=== PATIENT | female | born 1995 | race Caucasian/White ===

== ENCOUNTER 2017-07-08 21:54 | Emergency (ER) | payer SELFPAY ==
[~2017-07-08] VITALS: Ht 167.6 cm; Wt 113.4 kg
--- OUTSIDE RECORDS SUMMARY | 2017-07-08 22:00 | XMS REPORT ---
Author Author ARIANNA NDIAYE Organization [employer] Address Unknown Phone Unavailable Care Team Providers Care Primary Care Md Name Role Phone ARIANNA NDIAYE CP Unavailable Allergies, Adverse Reactions, Alerts Substance Reaction Event Type Morphine Sulfate hives Drug Allergy Problems Problem Type Condition Code Onset Dates Condition Status Problem Fatigue, unspecified type R53.83 Active Problem Obesity, unspecified obesity severity, unspecified obesity type E66.9 Active Problem Nocturnal enuresis N39.44 Active Assessment Nocturnal enuresis N39.44 Active Problem Insomnia, unspecified type G47.00 Active Assessment Obesity, unspecified obesity severity, unspecified obesity type E66.9 Active Medications Medication Code System Code Instructions Start Date End Date Status Dosage Imipramine HCl [facility] [address]-58 10 mg Orally Once a day Mar 19, 2016 1-2 tablet at bedtime Fish Oil [facility] [address]-65 1000 MG Orally twice a day December 19, 2015 1 capsule HydrOXYzine HCl [facility] 02906209917 25 MG Orally Once a day 1 tablet as needed Procedures Procedure Coding System Code Date Office Visit, Est Pt., Level 3 CPT-4 43380 Mar 19, 2016 Vital Signs Date/Time: Mar 19, 2016 Cardiac Monitoring Heart Rate 88 bpm Weight 247.2 lbs Height 66.0 in Wt Percentile 99.25 % BMI 39.89 Index Blood Pressure Diastolic 60 mmHg Blood Pressure Systolic 110 mmHg BMIPercentile 98.73 % Results No Known Results Summary Purpose [employer] Submission
--- OUTSIDE RECORDS SUMMARY | 2017-07-08 22:01 | XMS REPORT ---
Author Author [facility] Address [address] [place] [address] Care Team Providers Care Card Cutter Helper Name Role Phone ARIANNA NDIAYE Unavailable PROBLEMS Type Condition ICD9-CM Code IEZ96-LD Code Onset Dates Condition Status SNOMED Code Problem Nocturnal enuresis N39.44 Active 0925579 Problem Fatigue, unspecified type R53.83 Active 96518767 Problem Obesity, unspecified obesity severity, unspecified obesity type E66.9 Active 453474005 Problem Insomnia, unspecified type G47.00 Active 201707171 ALLERGIES Substance Reaction Event Type Date Status Morphine Sulfate hives Drug Allergy Jul, Active SOCIAL HISTORY No smoking Hx information available PLAN OF CARE Activity Details Follow Up prn Reason: VITAL SIGNS Height 66.0 in 2016-08-02 Weight 248.1 lbs 2016-08-02 Temperature 97.8 degrees Fahrenheit 2016-08-02 Heart Rate 80 bpm 2016-08-02 Respiratory Rate 16 2016-08-02 BMI 40.04 kg/m2 2016-08-02 Blood pressure systolic 114 mmHg 2016-08-02 Blood pressure diastolic 70 mmHg 2016-08-02 MEDICATIONS Medication Instructions Dosage Frequency Start Date End Date Duration Status Imipramine HCl 10 mg Orally Once a day at bedtime 1-2 tablets 0 days Active HydrOXYzine HCl 25 MG TAKE ONE (1) TABLET BY MOUTH ONCE DAILY NEEDED. Active RESULTS No Results PROCEDURES Procedure Date Ordered Related Diagnosis Body Site Office Visit, Est Pt., Level 3 Aug 02, 2016 IMMUNIZATIONS No Known Immunizations
--- OUTSIDE RECORDS SUMMARY | 2017-07-08 22:01 | XMS REPORT ---
Author [facility] Address [address] [place] [address] Care Team Providers Care Rod Greaser Name Role Phone ARIANNA NDIAYE Unavailable PROBLEMS Type Condition ICD9-CM Code FCF83-OQ Code Onset Dates Condition Status SNOMED Code Problem Nocturnal enuresis N39.44 Active 7009593 Problem Fatigue, unspecified type R53.83 Active 58004417 Problem Obesity, unspecified obesity severity, unspecified obesity type E66.9 Active 707893498 Problem Insomnia, unspecified type G47.00 Active 844545070 ALLERGIES Substance Reaction Event Type Date Status Morphine Sulfate hives Drug Allergy Sep, Active SOCIAL HISTORY Never Assessed PLAN OF CARE Activity Details Follow Up prn Reason: VITAL SIGNS Height 66.0 in 2016-09-10 Weight 244.1 lbs 2016-09-10 Temperature 98.3 degrees Fahrenheit 2016-09-10 Heart Rate 80 bpm 2016-09-10 Respiratory Rate 16 2016-09-10 BMI 39.39 kg/m2 2016-09-10 Blood pressure systolic 122 mmHg 2016-09-10 Blood pressure diastolic 68 mmHg 2016-09-10 MEDICATIONS Medication Instructions Dosage Frequency Start Date End Date Duration Status Cortisporin 3.5-37701-8 Otic Three times a day 4 drops into affected ear 8h Sep, 05 days Active RESULTS No Results PROCEDURES No Known procedures IMMUNIZATIONS No Known Immunizations MEDICAL (GENERAL) HISTORY Type Description Date Medical History chronic kidney infections Medical History borderline diabetic Medical History obesity Surgical History cholecystectomy 2013 Surgical History appendectomy 09/2012 Surgical History bilateral fallopian tubes, left ovary removed s/p multiple abscesses 09/2012 Surgical History myringotomy with ventilating tube Hospitalization History surgery
--- OUTSIDE RECORDS SUMMARY | 2017-07-08 22:01 | XMS REPORT ---
Author Author ARIANNA NDIAYE [facility] Address [address] [place] [address] Care Team Providers Care Band Splicer Name Role Phone ARIANNA NDIAYE Unavailable PROBLEMS Type Condition ICD9-CM Code [id number]-LW Code Onset Dates Condition Status SNOMED Code Problem Nocturnal enuresis N39.44 Active 0975049 Problem Fatigue, unspecified type R53.83 Active 84208509 Problem Obesity, unspecified obesity severity, unspecified obesity type E66.9 Active 512070620 Problem Insomnia, unspecified type G47.00 Active 603959828 ALLERGIES Unknown Allergies SOCIAL HISTORY No smoking Hx information available PLAN OF CARE VITAL SIGNS MEDICATIONS Medication Instructions Dosage Frequency Start Date End Date Duration Status Imipramine HCl 10 mg Orally Once a day 1-2 tablet at bedtime 24h Mar, Active RESULTS No Results PROCEDURES No Known procedures IMMUNIZATIONS No Known Immunizations
--- OUTSIDE RECORDS SUMMARY | 2017-07-08 22:01 | XMS REPORT ---
Author Author ARIANNA NDIAYE [facility] Address [address] [place] [address] Care Team Providers Care Fuel Retrofitting Technician Name Role Phone ARIANNA NDIAYE Unavailable PROBLEMS Type Condition ICD9-CM Code EDW49-PM Code Onset Dates Condition Status SNOMED Code Problem Nocturnal enuresis N39.44 Active 9518475 Problem Fatigue, unspecified type R53.83 Active 77367717 Problem Obesity, unspecified obesity severity, unspecified obesity type E66.9 Active 131501970 Problem Insomnia, unspecified type G47.00 Active 569177428 ALLERGIES No Known Allergies SOCIAL HISTORY No smoking Hx information available PLAN OF CARE VITAL SIGNS MEDICATIONS Medication Instructions Dosage Frequency Start Date End Date Duration Status Imipramine HCl 10 mg Orally Once a day at bedtime 1-2 tablets 0 days Active RESULTS No Results PROCEDURES No Known procedures IMMUNIZATIONS No Known Immunizations
[2017-07-08] MEDS ORDERED: ONDANSETRON 4 MG (ZOFRAN) ORAL DISSOLVE TAB SL STA (23:32)
[2017-07-08] MEDS ORDERED: ANTACID SUSP 30 ML UDC (MYLANTA) PO ONE (23:45)
[2017-07-08] MEDS ORDERED: LIDOCAINE 2% VISCOUS 15 ML UDC PO ONE (23:45)
[2017-07-09 00:16] LABS: BASOPHILS # (AUTO) 0.1 10^3/uL (0.0-0.1); BASOPHILS % (AUTO) 1 % (0-10); EOSINOPHILS # (AUTO) 0.8 10^3/uL (0.0-0.3); EOSINOPHILS % (AUTO) 6 % (0-10); LYMPHOCYTES # (AUTO) 4.3 X 10^3 (1.0-4.0); LYMPHOCYTES % (AUTO) 30 % (12-44); MEAN CORPUSCULAR HEMOGLOBIN 29 PG (25-34); MEAN CORPUSCULAR HGB CONC 33 G/DL (32-36); MEAN CORPUSCULAR VOLUME 88 FL (80-99); MEAN PLATELET VOLUME 9.4 FL (7.4-10.4); MONOCYTES % (AUTO) 7 % (0-12); NEUTROPHILS # (AUTO) 8.2 X 10^3 (1.8-7.8); NEUTROPHILS % (AUTO) 57 % (42-75); PLATELET COUNT 335 10^3/uL (130-400); RED BLOOD COUNT 4.41 10^6/uL (4.35-5.85); RED CELL DISTRIBUTION WIDTH 15.1 % (10.0-14.5); WHITE BLOOD COUNT 14.5 10^3/uL (4.3-11.0)
[2017-07-09 00:18] LABS: BILIRUBIN,URINE NEGATIVE (NEGATIVE); KETONES,URINE NEGATIVE (NEGATIVE); LEUKOCYTE ESTERASE ,URINE NEGATIVE (NEGATIVE); NITRITE,URINE NEGATIVE (NEGATIVE); PH,URINE 6.5 (5-9); PROTEIN,URINE NEGATIVE (NEGATIVE); UROBILINOGEN,URINE NORMAL (NORMAL)
[2017-07-09 00:36] LABS: ALANINE AMINOTRANSFERASE 17 U/L (0-55); ALBUMIN 3.7 GM/DL (3.2-4.5); ANION GAP 10 MMOL/L (5-14); ASPARTATE AMINO TRANSFERASE 13 U/L (5-34); BILIRUBIN,TOTAL 0.3 MG/DL (0.1-1.0); BLOOD UREA NITROGEN 8 MG/DL (7-18); BUN/CREATININE RATIO 11; CALCIUM 9.3 MG/DL (8.5-10.1); CARBON DIOXIDE 23 MMOL/L (21-32); CHLORIDE 107 MMOL/L (98-107); GFR ESTIMATED > 60; GLUCOSE 97 MG/DL (70-105); LIPASE 22 U/L (8-78); POTASSIUM 3.8 MMOL/L (3.6-5.0); SODIUM 140 MMOL/L (135-145); TOTAL PROTEIN 7.1 GM/DL (6.4-8.2)
--- NOTE | 2017-07-09 00:40 | ED Abdominal Pain ---
General Chief Complaint: Abdominal/GI Problems Stated Complaint: STOMACH PAIN Nursing Triage Note: PT COMPLAINING OF UPPER STOMACH PAIN THAT RADIATES TO HER BACK. STATES THAT IT STARTED 07/05/17, BUT HAS BEEN GOING ON FOR A MONTH. ALSO COMPLAINING OF INTERMITTENT NAUSEA WITH THE PAIN. Source of Information: Patient Exam Limitations: No Limitations History of Present Illness Time Seen By Provider: 23:24 Initial Comments This 21-year-old young lady presents to emergency room with sharp abdominal pain superior to the umbilicus which has been present intermittently for about one week. She states it varies from 2/10 to about 7/10. Movement and eating exacerbate the pain. She ate pizza and salad tonight around 20:30. She has had intermittent vomiting for about 2 months. She reports positive diarrhea. Pain radiates to her central back. She is status post cholecystectomy. She has history of a periumbilical hernia repair previously. Allergies and Home Medications Allergies Coded Allergies: morphine (Verified Allergy, Mild, RASH, 07/08/17) Review of Systems Constitutional: no symptoms reported EENTM: No Symptoms Reported Respiratory: No Symptoms Reported Cardiovascular: No Symptoms Reported Gastrointestinal: See HPI Genitourinary: No Symptoms Reported Musculoskeletal: no symptoms reported Skin: no symptoms reported Psychiatric/Neurological: No Symptoms Reported Endocrine: No Symptoms Reported Past Tgozsor-Gpulwz-Dzhldt Hx Patient Social History Recent Foreign Travel: No Contact w/Someone Who Travel: No Recent Infectious Disease Expo: No Recent Hopitalizations: No Ebola Symptoms: Denies Symptoms Listed Physical Abuse: No Sexual Abuse: No Seasonal Allergies Seasonal Allergies: No Surgeries History of Surgeries: Yes (FALLOPIAN TUBE, LEFT OVARY, HERNIA, ) Surgeries: Abdominal, Gallbladder, Oophorectomy (left) Respiratory History of Respiratory Disorde: No Cardiovascular History of Cardiac Disorders: No Neurological History of Neurological Disord: No Reproductive System : No Female Reproductive Disorders: Pelvic Inflammatory Dis, Ovarian Cyst Genitourinary History of Genitourinary Disor: No Gastrointestinal History of Gastrointestinal Di: Yes Gastrointestinal Disorders: Abdominal Hernia, Chronic Constipation Musculoskeletal History of Musculoskeletal Dis: No Endocrine History of Endocrine Disorders: No HEENT History of HEENT Disorders: No Cancer History of Cancer: No Psychosocial History of Psychiatric Problem: No Suicide Risk Score: 0 Blood Transfusions History of Blood Disorders: No Adverse Reaction to a Blood Tr: No Physical Exam Vital Signs VS - Last 72 Hours, by Label 07/08/17 22:40 Temp 98.6 Pulse 99 Resp 20 B/P (MAP) 143/94 O2 Delivery Room Air Capillary Refill : General Appearance: WD/WN, no apparent distress, obese HEENT: PERRL/EOMI, normal ENT inspection Respiratory: lungs clear, normal breath sounds, no respiratory distress, no accessory muscle use Cardiovascular: regular rate, rhythm, no edema, no murmur Gastrointestinal: normal bowel sounds, soft, No distended, No guarding, No rebound, tenderness (epigastric region) Extremities: normal inspection, no pedal edema Neurologic/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: 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 as tested, no motor/sensory deficits, alert, normal mood/affect, oriented x 3 Skin: normal color, warm/dry Progress/Results/Core Measures Results/Orders Lab Results Laboratory Tests Test 07/08/17 22:34 07/09/17 00:05 Range/Units Urine Color YELLOW Urine Clarity CLEAR Urine pH 6.5 5-9 Urine Specific [place] 1.010 L 1.016-1.022 Urine Protein NEGATIVE NEGATIVE Urine Glucose (UA) NEGATIVE NEGATIVE Urine Ketones NEGATIVE NEGATIVE Urine Nitrite NEGATIVE NEGATIVE Urine Bilirubin NEGATIVE NEGATIVE Urine Urobilinogen NORMAL NORMAL MG/DL Urine Leukocyte Esterase NEGATIVE NEGATIVE Urine RBC (Auto) NEGATIVE NEGATIVE Urine RBC NONE /HPF Urine WBC NONE /HPF Urine Squamous Epithelial Cells 5-10 /HPF Urine Crystals NONE /LPF Urine Bacteria NEGATIVE /HPF Urine Casts NONE /LPF Urine Mucus NEGATIVE /LPF Urine Culture Indicated NO White Blood Count 14.5 H 4.3-11.0 10^3/uL Red Blood Count 4.41 4.35-5.85 10^6/uL Hemoglobin 12.6 11.5-16.0 G/DL Hematocrit 39 35-52 % Mean Corpuscular Volume 88 80-99 FL Mean Corpuscular Hemoglobin 29 25-34 PG Mean Corpuscular Hemoglobin Concent 33 32-36 G/DL Red Cell Distribution Width 15.1 H 10.0-14.5 % Platelet Count 335 130-400 10^3/uL Mean Platelet Volume 9.4 7.4-10.4 FL Neutrophils (%) (Auto) 57 42-75 % Lymphocytes (%) (Auto) 30 12-44 % Monocytes (%) (Auto) 7 0-12 % Eosinophils (%) (Auto) 6 0-10 % Basophils (%) (Auto) 1 0-10 % Neutrophils # (Auto) 8.2 H 1.8-7.8 X 10^3 Lymphocytes # (Auto) 4.3 H 1.0-4.0 X 10^3 Monocytes # (Auto) 1.0 0.0-1.0 X 10^3 Eosinophils # (Auto) 0.8 H 0.0-0.3 10^3/uL Basophils # (Auto) 0.1 0.0-0.1 10^3/uL Sodium Level 140 135-145 MMOL/L Potassium Level 3.8 3.6-5.0 MMOL/L Chloride Level 107 98-107 MMOL/L Carbon Dioxide Level 23 21-32 MMOL/L Anion Gap 10 5-14 MMOL/L Blood Urea Nitrogen 8 7-18 MG/DL Creatinine 0.70 0.60-1.30 MG/DL Estimat Glomerular Filtration Rate > 60 BUN/Creatinine Ratio 11 Glucose Level 97 70-105 MG/DL Calcium Level 9.3 8.5-10.1 MG/DL Total Bilirubin 0.3 0.1-1.0 MG/DL Aspartate Amino Transf (AST/SGOT) 13 5-34 U/L Alanine Aminotransferase (ALT/SGPT) 17 0-55 U/L Alkaline Phosphatase 77 40-136 U/L Total Protein 7.1 6.4-8.2 GM/DL Albumin 3.7 3.2-4.5 GM/DL Lipase 22 8-78 U/L My Orders Orders - WES BOWSER MD Ondansetron Oral Dissolve Tab (Zofran (07/08/17 23:32) Lidocaine 2% Viscous 15 Ml (Xylocaine Vi (07/08/17 23:45) Antacid Suspension (Mylanta Suspension (07/08/17 23:45) Ct Abdomen/Pelvis W (07/09/17 00:04) Cbc With Automated Diff (07/09/17 00:04) Comprehensive Metabolic Panel (07/09/17 00:04) Lipase (07/09/17 00:04) Ua Culture If Indicated (07/09/17 00:04) Saline Lock/Iv-Start (07/09/17 00:04) Urine Bedside (07/09/17 00:18) Medications Given in ED Current Medications Medications Dose Ordered Sig/Leo Route Start Time Stop Time Status Last Admin Dose Admin Al Hydrox/Mg Hydrox/Simethicone 30 ml ONCE ONCE PO 07/08/17 23:45 07/08/17 23:46 DC 07/08/17 23:36 30 ML Lidocaine HCl 15 ml ONCE ONCE PO 07/08/17 23:45 07/08/17 23:46 DC 07/08/17 23:36 15 ML Vital Signs/I&O Vital Sign - Last 12Hours 07/08/17 22:40 Temp 98.6 Pulse 99 Resp 20 B/P (MAP) 143/94 O2 Delivery Room Air Point of Care Testing Urine -Bedside: Negative Progress Note #1: Time: 00:05 Progress Note Patient was treated with Zofran and GI cocktail. This failed to alleviate her pain and nausea. She is very concerned that she may have recurrence of her periumbilical hernia. She has requested a CT scan. Progress Note #2: Time: 01:33 Progress Note Patient's pain is now improved. She was sleeping soundly in the exam room. CT scan was unremarkable. Diagnostic Imaging Diagonstic Imaging: CT Plain Films/CT/US/NM/MRI: abdomen, pelvis Comments CT abdomen and pelvis viewed by me and [employer] report reviewed. No acute abnormalities were appreciated. Departure Impression Impression: Primary Impression: Upper abdominal pain Additional Impression: Nausea and vomiting Qualified Codes: R11.2 - Nausea with vomiting, unspecified Disposition: HOME, SELF-CARE Condition: Improved Departure-Patient Inst. Referrals: [facility] (PCP) Primary Care Physician ARIANNA NDIAYE (Family) Primary Care Physician Patient Instructions: Acute Abdomen (Belly Pain), Adult (DC) Add. Discharge Instructions: Drink plenty of noncarbonated clear liquids. Take omeprazole twice daily as prescribed. Avoid the following: Eating large meals, eating close to bedtime, carbonation, caffeine, chocolate, citrus fruits and juices, tomato products, tobacco, alcohol , fatty or greasy foods, spicy foods, mints, NSAID medications such as ibuprofen or naproxen, or anything else you know irritates your stomach. Follow-up with your primary care provider as soon as possible. If symptoms persist despite treatment and dietary changes, consider endoscopy. All discharge instructions reviewed with patient and/or family. Voiced understanding. Scripts Ondansetron (Zofran Odt) 4 Mg Tab.rapdis 4 MG SL Q4H Y for NAUSEA/VOMITING-1ST LINE, #10 TAB Prov: WES BOWSER MD 07/09/17 Omeprazole (Omeprazole) 20 Mg Tablet. 20 MG PO BID, #60 TAB Prov: WES BOWSER MD 07/09/17 WES BOWSER MD Jul 09, 2017 00:40
[2017-07-09] MEDS ORDERED: ONDA4TAB8 SL (01:39)
[2017-07-09] MEDS ORDERED: OMEP20TA7 PO (01:39)
--- NOTE | 2017-07-09 07:01 | Diagnostic Imaging Report ---
PROCEDURE: CT abdomen and pelvis with contrast. TECHNIQUE: Multiple contiguous axial images were obtained through the abdomen and pelvis after administration of intravenous contrast. INDICATION: Upper abdominal pain radiating to back. COMPARISON: None available. FINDINGS: Lower chest: The lung bases are clear. No pericardial or pleural effusion. Peritoneum: No free intraperitoneal air or fluid. Liver and biliary system: The liver is normal. Status post cholecystectomy. Spleen and Pancreas: Spleen is normal. The pancreas enhances normally without mass lesion or peripancreatic inflammatory changes. Adrenals: Normal. tract: The kidneys enhance normally without suspicious mass or obstruction. Urinary bladder is distended without wall thickening. Uterus and ovaries are normal in appearance. GI tract: Stomach is decompressed. No bowel obstruction. No pericolonic inflammatory changes. Status post appendectomy. Vasculature and Lymph nodes: Normal caliber aorta. No abdominal or pelvic lymphadenopathy. Musculoskeletal: No concerning osseous lesion. IMPRESSION: 1. No acute inflammatory or obstructive process in the abdomen or pelvis. 2. Status post appendectomy and cholecystectomy. 3. Findings are in agreement with the preliminary report. Dictated by: Dictated on workstation # [id number]
== END 2017-07-09 02:00 | disposition home or self-care (01) ==
LOC: ER 21:57
DX: R10.10 Upper abdominal pain, unspecified (principal); R11.2 Nausea with vomiting, unspecified; Z87.42 Personal history of other diseases of the female genital tract; Z87.19 Personal history of other diseases of the digestive system; Z90.721 Acquired absence of ovaries, unilateral; Z90.49 Acquired absence of other specified parts of digestive tract
CPT/HCPCS: 36415; 74177; 80053; 81000; 83690; 84703; 85025

== ENCOUNTER → 2020-09-22 | Outpatient (CLI) | payer SELFPAY ==
[~2020-09-22] MED LIST: OMEP20TA7 PO; ONDA4TAB8 SL
--- NOTE | 2020-09-22 17:16 | Diagnostic Imaging Report ---
EXAMINATION: Magnetic resonance imaging of the left ankle without contrast. DATE: September 22, 2020. COMPARISON: None. HISTORY: 24-year-old female, left ankle pain. Injury. TECHNIQUE: Magnetic Resonance Imaging sequences were performed of the ankle without contrast. [< >] FINDINGS: TENDONS AND LIGAMENTS: The Achilles tendon is unremarkable. The posterior flexor tendons - tibialis posterior, flexor digitorum longus, flexor hallucis longus - are intact. The peroneal tendons - peroneus longus and peroneus brevis - are intact. The anterior extensor tendons - tibialis anterior, extensor hallucis longus and extensor digitorum longus tendons - are intact. The anterior and posterior syndesmotic ligaments are intact. The anterior talofibular, posterior talofibular, calcaneofibular and deltoid ligaments are intact. The plantar fascia is intact. JOINTS: There is no tibiotalar joint space loss or sizable tibiotalar joint effusion. The posterior talar facet is somewhat dysmorphic. There is a well-corticated ossification adjacent to the posterior talus which may relate to a normal variant os trigonum versus sequela of prior injury or other insult. There is a subchondral cyst along the posterior aspect of the posterior talar facet. 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 There is a moderate-sized posterior subtalar joint effusion. The anterior subtalar joint and additional visualized joint spaces are unremarkable. BONE: There is loss of normal morphology of the posterior subtalar joint, as described above. There is no acute fracture. There is no bone contusion. There is no evidence of osteonecrosis. BURSAE AND SOFT TISSUES: The bursae and soft tissues surrounding the ankle are unremarkable. IMPRESSION: 1. Intact ankle ligaments and tendons. 2. No acute fracture or bone contusion. Intact talar dome. 3. Dysmorphic appearance of the posterior subtalar facet with at least mild posterior subtalar arthritis and moderate-sized posterior subtalar joint effusion. \ Dictated by: Dictated on workstation # [id number]
== END ==
LOC: RAD 14:43
PROVIDERS: ATTEND Nurse Practitioner Family
DX: M19.072 Primary osteoarthritis, left ankle and foot (principal)

== ENCOUNTER 2022-11-01 05:33 | Outpatient (CLI) | payer OTHER ==
[~2022-11-01] VITALS: Ht 170.2 cm; Wt 116.6 kg
[~2022-11-01 05:33] MED LIST changes: +OMEP20TA56 PO; -OMEP20TA7 PO
[2022-11-01] MEDS ORDERED: DROS1TAB5 PO (13:49)
[2022-11-01] MEDS ORDERED: SEMA0.25 SQ (13:49)
[2022-11-01] MEDS ORDERED: ERGO1250 PO (13:49)
[2022-11-01] MEDS ORDERED: VENL75TA2 PO (13:49)
== END 2022-11-01 13:54 | disposition home or self-care (01) ==
LOC: PREOP 05:33
PROVIDERS: ATTEND Surgery
DX: Z01.818 Encounter for other preprocedural examination (principal)

== ENCOUNTER 2022-11-08 13:25 | Day surgery (SDC) | payer OTHER ==
[2022-11-08] VITALS (11 sets, daily range): BP systolic 111–138; BP diastolic 55–87
[~2022-11-08] VITALS: Ht 170.2 cm; Wt 116.6 kg
[~2022-11-08 13:25] MED LIST changes: +DROS1TAB5 PO; +ERGO1250 PO; +SEMA0.25 SQ; +VENL75TA2 PO
--- NOTE | 2022-11-08 13:28 | Progress Note-Pre Operative ---
Pre-Operative Progress Note Date of Available H&P: Nov 08, 2022 Date H&P Reviewed: Nov 08, 2022 Time H&P Reviewed: 13:20 History & Physical: No changes noted Pre-Operative Diagnosis: abdominal wall mass AHSAN ARMENDARIZ MD Nov 08, 2022 13:28
[2022-11-08] MEDS ORDERED: ACETAMINOPHEN 325 MG TABLET PO PRN (13:30)
[2022-11-08] MEDS ORDERED: fentaNYL INJ 100 MCG/2 ML AMP IVP PRN (13:30)
[2022-11-08] MEDS ORDERED: ONDANSETRON 4 MG/2 ML (SDV) Z0FRAN IVP PRN ×2 (13:30→15:30)
[2022-11-08] MEDS ORDERED: oxyCODONE/APAP 5/325MG (PERCOCET 5) TABLET PO PRN (13:30)
[2022-11-08] MEDS ORDERED: HYDR-3817 PO (13:31)
--- NOTE | 2022-11-08 13:31 | Discharge Inst-Surgical ---
D/C Lap Instructions-KALA New, Converted, or Re-Newed RX: RX on Chart Follow Up Appt in 2 weeks Activity as tolerated No driving for 24 hours No driving while on pain medications Incentive Spirometry use every 2 hours while awake Regular Diet Symptoms to Report: Fever over 101 degree F, Nausea/Vomiting Infection Signs and Symptoms to report: Increased redness, Foul odor of wound, Increased drainage Bathing instructions: May shower Operative Area Clean/Dry; Keep incision clean/dry If any problems/questions: Contact your physician or go to Emergency Room AHSAN ARMENDARIZ MD Nov 08, 2022 13:31
[2022-11-08] MEDS ORDERED: BUP/EPI 0.5% 1:200,000 (SENSORCAINE) 30 ML VIAL ONE (13:42)
[2022-11-08] MEDS ORDERED: ROCURONIUM 50 MG/5 ML (ZEMURON) VIAL IV ONE (13:45)
[2022-11-08] MEDS ORDERED: MIDAZOLAM 2 MG/2 ML (VERSED) VIAL ONE (13:45)
[2022-11-08] MEDS ORDERED: ONDANSETRON 4 MG/2 ML (SDV) Z0FRAN ONE (13:45)
[2022-11-08] MEDS ORDERED: LIDOCAINE PF 2% 5 ML (XYLOCAINE) VIAL ONE (13:45)
[2022-11-08] MEDS ORDERED: proPOfol 200 MG/20 ML (DIPRIVAN) VIAL IV ONE (13:45)
[2022-11-08] MEDS ORDERED: SUCCINYLCHOLINE INJ 20 MG/1 ML 10 ML VIAL ONE (13:45)
[2022-11-08] MEDS ORDERED: fentaNYL INJ 100 MCG/2 ML AMP ONE ×2 (13:45→15:27)
[2022-11-08] MEDS ORDERED: LACTATED RINGERS 1,000 ML IV PRN (14:00)
[2022-11-08] MEDS ORDERED: BUP/EPI 0.5% 1:200,000 (SENSORCAINE) 30 ML VIAL INJ ONE (14:00)
[2022-11-08] MEDS ORDERED: NS (IVPB) 50 ML ONE (14:05)
[2022-11-08] MEDS ORDERED: ceFAZolin INJECTION 2,000 MG ONE (14:05)
--- NOTE | 2022-11-08 15:05 | Progress Note-Post Operative ---
Post-Operative Progess Note Surgeon (s)/Supervisor Screen Printing (s) Surgeon AHSAN ARMENDARIZ MD Supervisor Screen Printing: sarah lopez PRORATE CLERK Pre-Operative Diagnosis abdominal wall mass Post-Operative Diagnosis subcutaneous lipoma abdominal wall 8x6cm. Procedure & Operative Findings Date of Procedure 11/08/22 Procedure Performed/Findings excision subcutaneous lipoma abdominal wall 8x6cm. Anesthesia Type general LMA Estimated Blood Loss Estimated blood loss (mL): minimal Specimens/Packing Specimens Removed abdominal wall lipoma AHSAN ARMENDARIZ MD Nov 08, 2022 15:05
[2022-11-08] MEDS ORDERED: SEVOFLURANE (ULTANE) 15 ML INHAL SOLN ONE (15:13)
--- NOTE | 2022-11-08 15:20 | Anesthesia-General Post-Op ---
General Patient Condition Mental Status/LOC: Same as Preop Cardiovascular: Satisfactory Nausea/Vomiting: Absent Respiratory: Satisfactory Pain: Controlled Complications: Absent Post Op Complications Complications None Follow Up Care/Instructions Patient Instructions None needed. Anesthesia/Patient Condition Patient Condition Patient is doing well, no complaints, stable vital signs, no apparent adverse anesthesia problems. No complications reported per nursing. JEWEL NULL CRNA Nov 08, 2022 15:20
[2022-11-08] MEDS ORDERED: fentaNYL INJ 100 MCG/2 ML AMP IVP ONE (15:30)
--- NOTE | 2022-11-08 21:51 | OPERATIVE REPORT ---
DATE OF SERVICE: 11/08/2022 ATTENDING RISK MANAGEMENT SPECIALIST: TUCKER Scott. PREOPERATIVE DIAGNOSIS: Symptomatic left abdominal wall mass. POSTOPERATIVE DIAGNOSIS: Left subcutaneous abdominal wall lipoma, 8 x 6 cm in size. PROCEDURE: Excision of abdominal wall subcutaneous lipoma, 8 x 6 cm in size with moderate flap closure, 8 cm in length. SURGEON: Ahsan Armendariz MD TUBE DRAWING SUPERVISOR: Shlomo Kraft APRN ANESTHESIA: General laryngeal mask airway. ESTIMATED BLOOD LOSS: Minimal. FINDINGS: Left subcutaneous abdominal wall lipoma, 8 x 6 cm in size. DISPOSITION: The patient tolerated the procedure well. INDICATIONS: The patient is a 27-year-old female who was referred over to us for pain as well as a palpable bulge in the left mid and lateral abdomen. She reports that she first noticed this several months ago and feels that the lesion has grown larger in size and become painful. She was seen by her seo professional and a CT scan was performed, which did not show any fascial defect that would indicate any hernia. Upon examination, she was found to have a palpable lesion, which was tender to palpation and likely consistent with symptomatic lipoma. DESCRIPTION OF PROCEDURE: The patient was brought to the operating room, laid supine on the table. After adequate IV pain and sedative medications and general laryngeal mask airway intubation, the abdomen was prepped and draped in standard surgical fashion. Along the mid and lateral abdomen, the skin and subcutaneous tissue was anesthetized using 0.5% Marcaine with epinephrine and a transverse skin incision made using #15 blade. There was an organized adipose tissue consistent with a benign lipoma. This was then fully excised using blunt dissection as well as electrocautery to the fascial base at the level of the fascia, this was palpated and no hernias identified. Good hemostasis was observed and we proceeded with a superior, inferior flap formation using electrocautery and the subcutaneous tissue was reapproximated using 3-0 Vicryl interrupted sutures. A subcuticular interrupted 3-0 Vicryl suture was then placed and the skin was closed using 4-0 Monocryl running subcuticular suture. Wound was then cleaned and covered with Dermabond. The patient tolerated the procedure well. We will start IV and oral pain medication as well as a clear liquid diet. Once she is tolerating clears with good pain control with oral pain medications, ambulating well, we will discharge her home. Her only instructions will be to do no extreme or heavy lifting or exertion for the next 2 weeks as well as to keep the area clean and dry. Job ID: [id number] DocumentID: [id number] Dictated Date: 11/08/2022 15:10:01 Provisioning Specialist Date: 11/08/2022 21:49:00 Dictated By: AHSAN ARMENDARIZ MD
== END 2022-11-08 17:15 ==
LOC: SDC 13:25
PROVIDERS: ATTEND Surgery
DX: D17.1 Benign lipomatous neoplasm of skin and subcutaneous tissue of trunk (principal); E66.01 Morbid (severe) obesity due to excess calories; F17.210 Nicotine dependence, cigarettes, uncomplicated; Z68.41 Body mass index [BMI] 40.0-44.9, adult
CPT/HCPCS: 84703; 87081